=== PATIENT | male | born 1970 | race Caucasian/White ===

== ENCOUNTER 2018-03-10 09:15 | Emergency (ER) | payer OTHER ==
[~2018-03-10] VITALS: Ht 182.9 cm; Wt 95.3 kg
== END 2018-03-10 12:01 | disposition home or self-care (01) ==
LOC: ER 09:15
DX: S92.535A Nondisplaced fracture of distal phalanx of left lesser toe(s), initial encounter for closed fracture (principal); S90.212A Contusion of left great toe with damage to nail, initial encounter; W22.8XXA Striking against or struck by other objects, initial encounter; Y93.89 Activity, other specified; Y92.89 Other specified places as the place of occurrence of the external cause; Y99.8 Other external cause status